=== PATIENT | female | born 1960 | race Asian ===

== ENCOUNTER → 2024-06-05 07:17 | Outpatient (REF) | payer OTHER, SELFPAY | LOC: HWRAD 07:17 | PROVIDERS: ATTENDING PHYSICIAN Physician Assistant | DX: R79.89 Other specified abnormal findings of blood chemistry (principal); R14.0 Abdominal distension (gaseous) | CPT/HCPCS: 76700 ==

== ENCOUNTER → 2024-06-27 06:47 | Day surgery (SDC) | payer OTHER, SELFPAY | LOC: GI 06:47 | PROVIDERS: ATTENDING PHYSICIAN Internal Medicine Gastroenterology; FAMILY PHYSICIAN Family Medicine | DX: Z12.11 Encounter for screening for malignant neoplasm of colon (principal); D12.4 Benign neoplasm of descending colon; K64.8 Other hemorrhoids; Z83.719 Family history of colon polyps, unspecified | CPT/HCPCS: 45380; 88305 ==